=== PATIENT | female | born 1960 | race Caucasian/White ===

== ENCOUNTER 2022-04-29 17:54 | Emergency (ER) | payer OTHER ==
[~2022-04-29] VITALS: Ht 165.1 cm; Wt 160.0 kg
[2022-04-29 19:54] VITALS: BP 127/77
== END 2022-04-29 20:11 | disposition home or self-care (01) ==
LOC: EMS 18:02
DX: R45.851 Suicidal ideations (principal); Z74.01 Bed confinement status
CPT/HCPCS: 99285; Z7502

== ENCOUNTER 2022-09-21 12:00 | Emergency (ER) | payer OTHER ==
[~2022-09-21] VITALS: Ht 165.1 cm; Wt 170.0 kg
[2022-09-21] MEDS ORDERED: ACETAMINOPHEN 500 MG TABLET PO ONE (13:00)
[2022-09-21] MEDS ORDERED: ENOX40SY14 SQ (13:01)
[2022-09-21] MEDS ORDERED: GABA-1201 PO (13:01)
[2022-09-21] MEDS ORDERED: ATOR20TA PO (13:01)
[2022-09-21] MEDS ORDERED: QUET100T PO (13:01)
[2022-09-21] MEDS ORDERED: HALO5TAB23 PO (13:01)
[2022-09-21 18:10] VITALS: BP 149/69
== END 2022-09-21 20:22 | disposition home or self-care (01) ==
LOC: EMS 12:00
DX: S40.012A Contusion of left shoulder, initial encounter (principal); S80.02XA Contusion of left knee, initial encounter; F20.9 Schizophrenia, unspecified; F41.9 Anxiety disorder, unspecified; K21.9 Gastro-esophageal reflux disease without esophagitis; E78.00 Pure hypercholesterolemia, unspecified; Z88.0 Allergy status to penicillin; Z88.5 Allergy status to narcotic agent; X58.XXXA Exposure to other specified factors, initial encounter; Y93.89 Activity, other specified; Y92.89 Other specified places as the place of occurrence of the external cause; Y99.8 Other external cause status
CPT/HCPCS: 99285; 73030-TC; 73562-TC; Z7502; Z7610

== ENCOUNTER 2025-01-25 11:39 | Inpatient (IN) | payer OTHER ==
[~2025-01-25] VITALS: Ht 162.6 cm; Wt 148.0 kg
[~2025-01-25 11:39] MED LIST: ATOR20TA PO; ENOX40SY14 SQ; GABA-1201 PO; HALO5TAB23 PO; QUET100T PO
[2025-01-25] MEDS ORDERED: CRAN450T10 PO (11:54)
[2025-01-25] MEDS ORDERED: DIPH50CA39 PO (11:54)
[2025-01-25] MEDS ORDERED: APIX5TAB PO (11:54)
[2025-01-25] MEDS ORDERED: LACT100C2 PO (11:54)
[2025-01-25] MEDS ORDERED: DOCU100C33 PO (11:54)
[2025-01-25] MEDS ORDERED: HALO5TAB23 PO (12:50)
[2025-01-25 13:40] LABS: COVID AG,FIA SOURCE NASAL SWAB
[2025-01-25 14:31] LABS: SARS-COV2 (COVID) ANTIGEN,FIA Negative (Negative)
[2025-01-25 16:31] LABS: APPEARANCE,URINE CLEAR (CLEAR); GLUCOSE, URINE (UA) NEGATIVE (NEGATIVE); LEUKOCYTE ESTERASE ,URINE SMALL (NEGATIVE); NITRATE,URINE NEGATIVE (NEGATIVE); OCCULT BLOOD,URINE NEGATIVE (NEGATIVE); PH,URINE DRUG SCREEN 7.5 (5.0-8.0); SPECIFIC GRAVITIY, URINE 1.004 (1.003-1.030)
[2025-01-25 16:36] LABS: CALCIUM, TOTAL 9.0 mg/dL (8.8-10.5); CREATININE 0.60 mg/dL (0.60-1.30); GLOMERULAR FILTR. RATE CALC > 60 mL/min (>60); GLUCOSE,RANDOM 81 mg/dL (70-110); SODIUM SERUM 140 mmol/L (136-145); UREA NITROGEN, BLOOD 10 mg/dL (7-18)
[2025-01-25 16:37] LABS: ALCOHOL, BLOOD (SERUM) < 3 mg/dL (0-10)
[2025-01-25 16:47] LABS: AMPHET/METH SCREEN,URINE NEGATIVE (NEGATIVE); BARBITURATE SCREEN, URINE NEGATIVE (NEGATIVE); CANNABINOID SCREEN,URINE NEGATIVE (NEGATIVE); COCAINE SCREEN,URINE NEGATIVE (NEGATIVE); METHADONE SCREEN, URINE NEGATIVE (NEGATIVE)
[2025-01-25 16:50] LABS: ALCOHOL, URINE DRUG SCREEN NEGATIVE (NEGATIVE)
[2025-01-25 17:00] LABS: RED BLOOD CELL COUNT(AUTO) 4.57 MIL/uL (4.00-5.20); WHITE BLOOD COUNT (AUTO) 8.4 K/uL (4.5-11.0)
[2025-01-25 17:01] LABS: RED CELL DISTRIBUTION WIDTH 16.3 % (11.5-14.5)
[2025-01-25 18:22] LABS: SQUAMOUS EPITHELIAL CELL,UR Rare /LPF (None Seen)
[2025-01-25 18:48] LABS: PLATELET COUNT (AUTO) 74 K/uL (150-450)
[2025-01-25 19:04] LABS: ASPARTATE AMINOTRANSFERASE 29 U/L (15-37); TOTAL PROTEIN, SERUM 6.9 g/dL (6.4-8.2)
[2025-01-25] MEDS ORDERED: ONDANSETRON HCL 4 MG/2 ML VIAL IVP PRN (22:15)
[2025-01-25] MEDS ORDERED: [UNRECOGNIZED DRUG - OTHER] PO SCH (22:15)
[2025-01-25] MEDS: DOCUSATE SODIUM 100 MG CAPSULE PO SCH (22:15)
[2025-01-25 22:40] VITALS: BP 128/75; PULSE 72; RESP 18; TEMP 98.4; O2SAT 98
[2025-01-25] MEDS: ATORVASTATIN CALCIUM 20 MG TABLET PO SCH (23:17)
[2025-01-25] MEDS: APIXABAN 5 MG TABLET PO SCH (23:17)
[2025-01-26 04:52] VITALS: BP 102/72; PULSE 87; RESP 19; TEMP 97.7; O2SAT 100
[2025-01-26 08:00] VITALS: BP 112/67; PULSE 68; RESP 19; TEMP 97.5; O2SAT 97
[2025-01-26] MEDS: GABAPENTIN 400 MG CAPSULE PO SCH (09:35)
[2025-01-26 20:00] VITALS: BP 100/58; PULSE 82; RESP 20; TEMP 98.6; O2SAT 100
[2025-01-26 20:23] VITALS: BP 115/57; PULSE 82; RESP 18; TEMP 98.8; O2SAT 95
[2025-01-27 04:00] VITALS: BP 125/58; PULSE 78; RESP 18; TEMP 98.5; O2SAT 99
[2025-01-27 07:33] VITALS: BP 100/55; PULSE 55; RESP 20; TEMP 98.1; O2SAT 100
[2025-01-27 15:28] VITALS: BP 110/62; PULSE 54; RESP 20; TEMP 97.7; O2SAT 97
[2025-01-27 19:56] VITALS: BP 110/59; PULSE 61; RESP 20; TEMP 98.2; O2SAT 95
[2025-01-28 04:45] VITALS: BP 101/73; PULSE 69; RESP 18; TEMP 98.4; O2SAT 99
[2025-01-28 08:00] VITALS: BP 109/56; PULSE 79; RESP 19; TEMP 97.9; O2SAT 98
[2025-01-28] MEDS: ACETAMINOPHEN 325 MG TABLET PO PRN (08:45)
[2025-01-28 08:50] LABS: COVID AG,FIA SOURCE NASAL SWAB
[2025-01-28 09:11] LABS: SARS-COV2 (COVID) ANTIGEN,FIA Negative (Negative)
[2025-01-28 16:00] VITALS: BP 122/68; PULSE 63; RESP 19; TEMP 98.1; O2SAT 97
[2025-01-28 20:00] VITALS: BP 112/61; PULSE 85; RESP 18; TEMP 97.9; O2SAT 98
[2025-01-29 04:00] VITALS: BP_SYST 112; BP_SYST 124; BP_DIAS 70; BP_DIAS 72; PULSE 60; PULSE 70; RESP 18; TEMP 97.7; O2SAT 96; O2SAT 98
[2025-01-29 10:23] VITALS: BP 98/48; PULSE 72; RESP 20; TEMP 98.1; O2SAT 100
[2025-01-29] MEDS: BISACODYL 10 MG RECTAL RECTAL SUPPOSITORY PR PRN (13:47)
[2025-01-29 16:45] VITALS: BP 128/63; PULSE 70; RESP 20; TEMP 97.9; O2SAT 95
[2025-01-29 19:19] VITALS: BP 120/80; PULSE 72; RESP 18; TEMP 98.4; O2SAT 98
[2025-01-30 04:32] VITALS: BP 107/60; PULSE 65; RESP 18; TEMP 98.1; O2SAT 97
[2025-01-30 07:46] VITALS: BP 100/56; PULSE 57; RESP 18; TEMP 97.9; O2SAT 100
[2025-01-30 12:57] LABS: PLATELET COUNT (AUTO) 184 K/uL (150-450); RED BLOOD CELL COUNT(AUTO) 4.70 MIL/uL (4.00-5.20); RED CELL DISTRIBUTION WIDTH 15.1 % (11.5-14.5); WHITE BLOOD COUNT (AUTO) 5.3 K/uL (4.5-11.0)
[2025-01-30 13:03] LABS: CALCIUM, TOTAL 8.8 mg/dL (8.8-10.5); CREATININE 0.82 mg/dL (0.60-1.30); GLOMERULAR FILTR. RATE CALC > 60 mL/min (>60); GLUCOSE,RANDOM 136 mg/dL (70-110); SODIUM SERUM 141 mmol/L (136-145); UREA NITROGEN, BLOOD 13 mg/dL (7-18)
[2025-01-30 15:24] VITALS: BP 114/72; PULSE 73; RESP 18; TEMP 97.7; O2SAT 100
[2025-01-30 20:42] VITALS: BP 116/70; PULSE 92; RESP 18; TEMP 98.6; O2SAT 95
[2025-01-31 02:44] VITALS: BP 122/69; PULSE 64; RESP 18; TEMP 98.4; O2SAT 95
[2025-01-31 08:18] VITALS: BP 131/78; PULSE 77; RESP 20; TEMP 97.9; O2SAT 99
[2025-01-31 15:33] VITALS: BP 124/64; PULSE 77; RESP 20; TEMP 98.2; O2SAT 98
[2025-01-31 19:55] VITALS: BP 121/60; PULSE 90; RESP 18; TEMP 99.3; O2SAT 98
[2025-02-01 04:41] VITALS: BP 96/56; PULSE 61; RESP 18; TEMP 97.8; O2SAT 97
[2025-02-01 08:45] VITALS: BP 134/102; PULSE 69; RESP 18; TEMP 97.7; O2SAT 100
[2025-02-01] MEDS ORDERED: OLAN5TAB52 PO (11:36)
[2025-02-01] MEDS ORDERED: ACET650S14 PR (11:39)
[2025-02-01] MEDS ORDERED: SODI133E17 PR (11:40)
[2025-02-01] MEDS ORDERED: BISA-72 PO (11:41)
[2025-02-01] MEDS: SODIUM PHOSPHATE,MONO-DIBASIC 133 ML ENEMA PR PRN (12:23)
== END 2025-02-01 13:35 | DRG 885 ==
LOC: EMS 11:39 → EDH 17:56 → 6S 21:35 → 4E 01-26 18:22
PROVIDERS: ADMIT Internal Medicine; ATTEND Internal Medicine
DX: F20.9 Schizophrenia, unspecified (principal); Z68.43 Body mass index [BMI] 50.0-59.9, adult; I10 Essential (primary) hypertension; J44.9 Chronic obstructive pulmonary disease, unspecified; E66.01 Morbid (severe) obesity due to excess calories; F41.9 Anxiety disorder, unspecified; K21.9 Gastro-esophageal reflux disease without esophagitis; Z20.822 Contact with and (suspected) exposure to COVID-19; E78.00 Pure hypercholesterolemia, unspecified; Z79.899 Other long term (current) drug therapy; Z88.1 Allergy status to other antibiotic agents; Z88.2 Allergy status to sulfonamides; Z88.3 Allergy status to other anti-infective agents; Z88.5 Allergy status to narcotic agent; Z91.010 Allergy to peanuts
CPT/HCPCS: 80048; 80076; 80307; 81001; 85025; 97163; 97167; 97530; 97535; 99285; G0378; G0480